=== PATIENT | female | born 1965 | race African-American/Black ===

== ENCOUNTER 2021-11-23 20:26 | Emergency (ER) | payer OTHER, SELFPAY ==
--- NOTE | ~2021-11-23 | XR_ITS ---
EXAMINATION: 1. RADIOGRAPHS LEFT HAND 2. RADIOGRAPHS LEFT KNEE CLINICAL INFORMATION: Pain COMPARISON: Left knee x-rays on 09/19/2014 TECHNIQUE: 3 views of the left hand and 4 views of the left knee were obtained. FINDINGS: Left hand: Visualized portion of the distal radius and ulna demonstrate no fracture. Carpal rows are maintained. No metacarpal or phalangeal fracture. No significant degenerative changes of the left hand. No focal soft tissue swelling. Left knee: No fracture or dislocation. Trace suprapatellar joint effusion. There is mild to moderate narrowing of the medial joint space height. Small tricompartmental marginal osteophytes. XR/XR hand LT 2V IMPRESSION: -Unremarkable radiographs of the left hand. -Mild degenerative changes of the left knee with a small suprapatellar joint effusion.
--- NOTE | ~2021-11-23 | XR_ITS ---
EXAMINATION: 1. RADIOGRAPHS LEFT HAND 2. RADIOGRAPHS LEFT KNEE CLINICAL INFORMATION: Pain COMPARISON: Left knee x-rays on 09/19/2014 TECHNIQUE: 3 views of the left hand and 4 views of the left knee were obtained. FINDINGS: Left hand: Visualized portion of the distal radius and ulna demonstrate no fracture. Carpal rows are maintained. No metacarpal or phalangeal fracture. No significant degenerative changes of the left hand. No focal soft tissue swelling. Left knee: No fracture or dislocation. Trace suprapatellar joint effusion. There is mild to moderate narrowing of the medial joint space height. Small tricompartmental marginal osteophytes. XR/XR knee LT 4V IMPRESSION: -Unremarkable radiographs of the left hand. -Mild degenerative changes of the left knee with a small suprapatellar joint effusion.
[2021-11-23 21:10] VITALS: BP 141/75; PULSE 76; RESP 18; TEMP 36; O2SAT 100; BMI 32.1
== END 2021-11-24 04:20 | disposition home or self-care (01) ==
PROVIDERS: Emergency Provider Emergency Medicine; PCP Internal Medicine
DX: G56.02 Carpal tunnel syndrome, left upper limb (principal); M17.12 Unilateral primary osteoarthritis, left knee; M25.462 Effusion, left knee
CPT/HCPCS: 73120; 73564; 99281; 99283